=== PATIENT | female | born 1965 | race Caucasian/White ===

== ENCOUNTER 2024-08-14 09:45 | Day surgery (SDC) | payer OTHER ==
[2024-08-11 10:24] LABS: Absolute Basophils 0.1 K/uL (0-0.5); Absolute Eosinophils 0.2 K/uL (0-0.5); Absolute Lymphocytes (CBC) 2.4 K/uL (0.7-4.9); Absolute Monocytes 0.4 K/uL (0.1-1.3); Absolute Neutrophil 4.6 K/uL (1.8-8.0); Eosinophils % 2.6 % (0-4.4); Hematocrit 43.5 % (36.0-45.0); Hemoglobin 14.6 g/dL (12.0-15.0); MCHC 33.5 g/dL (32.0-36.0); MCV 86.7 fL (80-100); Monocytes % 5.7 % (3.3-12.3); Neutrophils % 59.7 % (41.7-73.7); Nucleated Red Blood Cells % 0.1 % (0-0); Platelets 202 thou/uL (152-406); RBC Red Blood Cell Count 5.02 M/uL (3.86-4.86)
[2024-08-11 10:39] LABS: Anion Gap 6.1 mEq/L (5.0-15.0); Potassium 4.1 mEq/L (3.5-5.1)
[2024-08-11 10:55] LABS: PT Prothrombin Time 11.2 SECONDS (9.4-12.5); PTT, Activated Partial Thromb 31.5 SECONDS (24.3-36.9)
--- NOTE | 2024-08-11 12:17 | RAD REPORT ---
EXAMINATION: TWO VIEW CHEST XR CLINICAL INDICATION: Female, 59 years old. [facility] pre op for day surgery. Hypertension TECHNIQUE: 2 view radiographs of the chest were performed. COMPARISON: No prior exam. FINDINGS: The lungs are well inflated and clear. No pneumothorax or sizable effusion. The heart is normal in si ze. Mediastinal contours are unremarkable. IMPRESSION: No acute or significant abnormalities.
[2024-08-14] MEDS ORDERED: CEFAZOLIN SODIUM 1 GM/VIAL ONE (09:49)
[2024-08-14] MEDS ORDERED: Ringers Lactate 1,000 ML IV ONE (09:49)
[2024-08-14] MEDS ORDERED: dexAMETHasone 10 MG/ML VIAL ONE ×2 (10:16→10:52)
[2024-08-14] MEDS ORDERED: LIDOCAINE 1% MPF 5 ML VIAL ONE (10:16)
[2024-08-14] MEDS ORDERED: MIDAZOLAM HCL 2 MG/2 ML INJ ONE (10:17)
[2024-08-14] MEDS ORDERED: EPINEPHRINE 1 MG/ML VIAL ONE ×2 (10:17→10:20)
[2024-08-14] MEDS ORDERED: FENTANYL CITR 100 MCG/2 ML ONE (10:17)
[2024-08-14] MEDS ORDERED: BUPIVACAINE 0.5% PF 10 ML VIAL ONE (10:18)
[2024-08-14] MEDS ORDERED: propofoL 200 MG/20 ML VIAL IV ONE (10:52)
[2024-08-14] MEDS ORDERED: ROCURONIUM 50 MG/5 ML VIAL IV ONE (10:52)
[2024-08-14] MEDS ORDERED: KETOROLAC 30 MG/ML INJ ONE (10:52)
[2024-08-14] MEDS ORDERED: ONDANSETRON 4 MG/2 ML VIAL ONE (10:52)
[2024-08-14] MEDS ORDERED: LIDOCAINE 2% MPF 5 ML VIAL ONE (10:52)
[2024-08-14] MEDS: CEFAZOLIN SODIUM 1 GM/VIAL IVP ONE (11:11)
[2024-08-14] MEDS: EPINEPHRINE 1 MG/ML VIAL IV ONE (11:11)
--- NOTE | 2024-08-14 13:06 | P.BOP ---
Preoperative diagnosis: Right shoulder rotator cuff tear, impingement syndrome, biceps auto rupture Postoperative diagnosis: Same Primary procedure: Right shoulder arthroscopic rotator cuff repair, Secondary procedure: Right shoulder arthroscopic labral debridement Other procedure(s): Right shoulder arthroscopic subacromial decompression Square Cutter: NONE,NONE Estimated blood loss: 10 cc Specimen: None Findings: See dictation Anesthesia: General Complications: None Implants: 1-5.5 mm Arthrex corkscrew, 2-4.75 mm Arthrex swivel lock Fluids & blood products: Per anesthesia record Transferred to: Recovery Room Condition: Good
[2024-08-14 14:48] VITALS: BP 109/70; TEMP 97.4; O2SAT 96
--- NOTE | 2024-08-14 14:49 | RAD REPORT ---
EXAMINATION: Shoulder 1 View CLINICAL INDICATION: Female, 59 years old. S/P ROTATOR CUFF REPAIR RIGHT COMPARISON: No prior exam. FINDINGS: No acute fracture. No dislocation. No significant focal degenerative change. Other: Postoperative changes present within the soft tissues. IMPRESSION: No acute osseous abnormality.
--- NOTE | 2024-08-14 15:58 | EKG ---
Test Date: 2024-08-11 Test Time: 11:14:27 Sales Representative Printing: CHRISTOPHER MEASUREMENT RESULTS: Intervals: Rate: 61 HI: 130 QRSD: 88 QT: 402 QTc: 404 [place]: P: 72 HI: 130 QRS: 81 T: 60 INTERPRETIVE STATEMENTS: Normal sinus rhythm Normal ECG No previous ECG available for comparison Electronically Signed On 08-14-24 15:51:52 SENIOR ECOLOGIST by Brandyn Orellana
== END 2024-08-14 14:45 | disposition home or self-care (01) ==
LOC: OR 09:45
PROVIDERS: ATTEND Orthopaedic Surgery Sports Medicine
PROC: 0LM14ZZ Reattachment of Right Shoulder Tendon, Percutaneous Endoscopic Approach (ICD-10-PCS; 2024-08-14)
PROC: 0RNJ4ZZ Release Right Shoulder Joint, Percutaneous Endoscopic Approach (ICD-10-PCS; principal; 2024-08-14 11:11)
DX: M75.121 Complete rotator cuff tear or rupture of right shoulder, not specified as traumatic (principal); S46.211A Strain of muscle, fascia and tendon of other parts of biceps, right arm, initial encounter; M75.51 Bursitis of right shoulder; M75.41 Impingement syndrome of right shoulder
CPT/HCPCS: 93005; 85025; 80048; 36415; 85610; 85730; 71046; 73020; 29827; 29826; 29822; J2704; J2003 ×2; J2250; J3010; J1100 ×2; J0171 ×3; J2405; J7120; J0690 ×2